=== PATIENT | female | born 1950 | race Caucasian/White ===

== ENCOUNTER 2016-09-20 05:53 | Day surgery (SDC) | payer MEDICARE, OTHER ==
--- NOTE | 2016-09-18 16:00 | PCM.ANEPRE ---
Anesthesia Pre-Op Review Reason for Review: systolic murmur heard at preop- EKG done, no prior cardiac hx, sx Anesthesia Recommendations: Proceed with Procedure Additional Comments This patient has an upcoming low risk surgical procedure and can present for surgery. Additionally, she meets the criteria of 4 METS without cardiac chest pain or symptoms. Therefore, she does not need further cardiac optimization prior to proceeding to the OR. If her symptoms in person are different than on paper, it is certainly reasonable for the plan for surgery to be re-evaluated. However, at this time, I do not see any further need for ongoing workup or optimization of a heart murmur. Shay Hernandez MD Sep 18, 2016 16:00
[~2016-09-20] VITALS: Ht 155.6 cm; Wt 79.8 kg
[~2016-09-20 05:53] MED LIST: ADV250INH IH; ALBU8.5H2 INHALATION; BUPR200T34 PO; CALC-696 PO; CHOL100043 PO; CINN500C14 PO; DULO60CA61 PO; FLAX100038 PO; LISI1TAB9 PO; METH750T3 PO; RES15 PO; RIZA10TA23 PO; vitamin b12
[2016-09-20] MEDS ORDERED: fentaNYL-PF 50 mCg/mL 2 mL Inj ONE (05:54)
[2016-09-20] MEDS ORDERED: Propofol 10,000 mCg/mL 20 mL Inj ONE (05:54)
[2016-09-20 06:27] VITALS: BP 134/83; PULSE 88; RESP 14; O2SAT 97
[2016-09-20] MEDS: Lactated Ringer's 1,000 ML IV SCH ×2 (06:44→07:24)
[2016-09-20] MEDS ORDERED: Lactated Ringer's 1,000 ML IV SCH (07:32)
[2016-09-20] MEDS ORDERED: Lactated Ringer's 500 ML IV PRN (07:32)
[2016-09-20] MEDS ORDERED: Ondansetron 2 mg/mL 2 mL Inj IVPUSH PRN (07:35)
[2016-09-20] MEDS ORDERED: fentaNYL-PF 50 mCg/mL 2 mL Inj IVPUSH PRN (07:35)
[2016-09-20] MEDS ORDERED: EPHEDrine Sulfate 50 mg/mL Inj IVPUSH PRN (07:35)
[2016-09-20] MEDS ORDERED: hydrALAZINE 20 mg/mL Inj IVPUSH PRN (07:35)
[2016-09-20] MEDS ORDERED: Atropine 0.4 mg/mL Inj IVPUSH PRN (07:35)
[2016-09-20] MEDS ORDERED: Phenylephrine 10,000 mCg/mL Inj IVPUSH PRN (07:35)
[2016-09-20] MEDS ORDERED: Lidocaine 1%-Epi 1:100,000 20 mL Inj INFILTRATE ONE (07:40)
[2016-09-20] MEDS ORDERED: HYDROcodone-APAP 5-325 mg Tablet PO PRN (07:50)
[2016-09-20 07:58] VITALS: BP 115/72; PULSE 87; RESP 16; O2SAT 95
[2016-09-20 08:38] VITALS: BP 122/78; PULSE 81; RESP 20; O2SAT 96
--- NOTE | 2016-09-20 13:05 | PCM.HPANE ---
Patient Data Surgeon Admitting Provider: Attending Provider:Miquel Morocho DO Primary Care Physician:Lexy Ortega Other Provider:Reji Caballero Anesthesia Reason for Visit Left Carpal Tunnel Syndrome Ht/WT & BMI Height (Feet): 5 Height (Inches): 1.25 Weight (Kilograms): 79.830 Body Mass Index 32.00 Allergies Coded Allergies: amoxicillin (Verified Allergy, Unknown, gi symptoms, 09/18/16) clavulanic acid (Verified Allergy, Unknown, gi symptoms, 09/18/16) nadolol (Verified Allergy, Unknown, exacerbated asthma, 09/18/16) naproxen (Verified Allergy, Unknown, rash, 09/18/16) Past Anesthesia History Anesthesia History: Denies:: Abnormal Airway, Anesthesia Reactions, Difficult Intubation, Fam Anesthesia Reaction, Fam Malignant Hypertherm, Malignant Hyperthermia Diabetes History Hx Diabetes?: No MRSA MRSA: No Medications Hypertension Medication: Yes Home Meds Incl Beta Liam: No Reported Medications Cholecalciferol (Vitamin D3) (Vitamin D)1,000 Unit Tablet2,000 Unit PO DAILY #1 BOTTLE Ref 0 09/18/16 [vitamin b12] No Conflict CheckUnknown Dose DAILY 09/18/16 Temazepam 15 Mg [id number] Mg PO HS PRN For Insomnia 30 Days Ref 0 09/18/16 Rizatriptan ODT (Maxalt MACARONI MAKER)10 Mg Nmwrmg27 Mg PO PRN migraines MR q2h/ NTE 30mg/24hr 09/18/16 Lisinopril / HCTZ 20-12.5 mg 1 Each Tablet2 Each PO DAILY Ref 0 09/18/16 Flaxseed Oil ([place]-3 Flaxseed Oil)1,000 Mg Capsule1,000 Mg PO DAILY 09/18/16 Duloxetine 60 Mg Capsule.dr60 Mg PO DAILY Ref 0 09/18/16 Cinnamon Bark (Cinnamon)500 Mg Capsule1,000 Mg PO 09/18/16 Calcium Citrate/Vitamin D2 (Emiliano-Citrate Plus Vitamin D Tab)1 Each Tablet1 Each PO DAILY 09/18/16 Bupropion HCl (Bupropion HCl ER)200 Mg Tablet.er200 Mg PO BID 09/18/16 Albuterol HFA (Proair HFA)8.5 Gm Hfa.aer.ad2 Puffs INHALATION Q4H PRN For Shortness of Breath #1 INHALER 09/18/16 Fluticasone/Salmeterol (Advair 250-50 Diskus)60 Puff/Inh Disk1 Puff IH BID #1 DISK Ref 0 09/18/16 Discontinued Reported Medications Methocarbamol 750 Mg [id number] Mg PO QID PRN For Spasm Ref 0 09/18/16 History HEENT History: Denies:: Abnormal Airway Cataracts Difficult Intubation Dysphagia Glaucoma Hearing Problem Sinus Problem TMJ Teeth Condition: Broken Teeth Other HEENT Pertinent History: broken tooth, part of a crown - not painful, upper left Hx of Heart Problems?: Yes Cardiovascular History: Positive for:: Heart Murmur (systolic murmur heard at pre-op) Hypertension Denies:: AICD Pacemaker Peripheral Vascular Rheumatic Fever Thrombophlebitis Valvular Heart Disease Hx of Respiratory Problem?: Yes Respiratory History: Positive for:: Asthma Pneumonia (remote hx of ) Use of Inhalers / NEBS Denies:: COPD Emphysema Oxygen Administration Pulmonary Embolism Tuberculosis Use of C-PAP Machine Hx Neurologic Problems?: No Neurological History: Positive for:: Headaches (a few times a year, ) Denies:: Alzheimer's Disease CVA Dementia Dizziness Multiple Sclerosis Parkinson's Disease Seizures TIA Hx of GI Problems?: No Gastrointestinal History: Denies:: Cirrhosis Diverticulitis Gall Bladder Disease Gastroesphageal Reflux (occasionally) Gastrointestinal Bleeding Heartburn Hepatitis Hiatal Hernia Liver Disease Rectal Bleeding Hx of Problems?: No Genitourinary History: Denies:: Kidney Stones Urinary Tract Infection Female Hx: Denies:: Currently (post menopausal ) Problems with Breasts? Skin History: Denies:: History Skin Disorders? Pressure Ulcers Hx Musculoskeletal Problems?: Yes Musculoskeletal History: Positive for:: Back Injury (hurts her to turn neck- thinks is pulled muscle) Musculoskeletal Trauma (left carpal tunnel current admission problem) Osteoarthritis Denies:: Degenerative Joint Fibromyalgia Joint Replacement Systemic Lupus Hx of Psycho/Social Problems?: Yes Psycho Social History: Positive for:: Anxiety Hx Depression Hx Surgeries?: No Hx Any Other Health Problems?: Yes Other History: Denies:: Cancer Hospitalization Thyroid Disease History Blood Transfusions: Positive for:: Accept Blood Products? Denies:: Blood Transfusions Hx Diabetes: No Hx Alcohol Use: YesAlcoholic Drinks Per Day: 2 drinks dailyHx Substance Use: NoHave You Smoked inLast 12 mo: No Stop/Bang S-Snoring: Do You Snore Loudly: Yes T-Tired: feel tired, fatigued: Yes O-Obsered: Observed not breath: No P-Blood Pressure: treated: Yes B- Body Mass Index > 35 kg/m2: No A- Age over 50: Yes N- Neck Large Circumference: No G- Gender Male: No LEATHA Total Score: 4 Risk Assessment Category Category 1A: Patient has history of documented sleep apnea, and HAS NOT received any narcotic, sedative or anesthesia administration during this stay. Category 1B: Patient has history of documented sleep apnea, and HAS received any narcotic , sedative or anesthesia administration during this stay Category 2: Patient has SUSPECTED Obstructive Sleep Apnea, and HAS received any narcotic , sedative or anesthesia administration during this stay. Category 3: Patient has SUSPECTED Obstructive Sleep Apnea and HAS NOT received narcotic, sedative or anesthesia administration during this stay. Category 4: Outpatient in Procedural Areas with known sleep apnea or who screen positive for High Risk via the STOP/BANG questionnaire. Exam Exam Vital Signs Vital Signs Date Time Temp Pulse Resp B/P Pulse Ox O2 Delivery O2 Flow Rate FiO2 09/20/16 06:27 88 14 134/83 97 Room Air General Appearance: Alert, Oriented X3, Cooperative, No Acute Distress HEENT/AIRWAY: MP 2, Neck Movement (FROM), Mouth Opening (3 FBMO) Lungs: Normal Air Movement Heart: Regular Rate/Rhythm Meds/Labs/Diagnostics Admission Meds Current Medications Lactated Ringer's (Lr) 1,000 ml @ 120 mls/hr Q8H20M IV Last administered on t 06:44; Start 09/20/16 at 05:00; Stop 09/20/16 at 13:19 Plan Impression Patient chart reviewed, patient interviewed and anesthestic plan with risks, benefits, and alternatives discussed, and informed consent obtained. NPO Status: [id number] WATER WITH MEDS ASA Physical Status: ASA2 Mod Systemic Disease Anesthetic Plan: MAC Bene/Risks/Altern/Consents: Yes HP Complete Prior to Induction: Yes Morris Yan MD Sep 20, 2016 07:00
--- NOTE | 2016-09-20 13:06 | PCM.ANEP2 ---
Post Anesthesia Evaluation ASA/CMS Post Anesthesia VS in Patient's Normal Range?: Yes Resp Stable; Airway Patent?: Yes CV Function & Hydration Stable: Yes Mental Status Recovered?: Yes Pain control Satisfactory?: Yes N/V Control Satisfactory?: Yes Morris Yan MD Sep 20, 2016 13:06
--- NOTE | 2016-09-20 13:06 | PCM.ANEP1 ---
Post Anesthesia Phase 1 PACU Phase 1 Assessment Vital Signs Vital Signs Date Time Temp Pulse Resp B/P Pulse Ox O2 Delivery O2 Flow Rate FiO2 09/20/16 08:38 81 20 122/78 96 Room Air 09/20/16 07:58 36.2 87 16 115/72 95 Room Air 09/20/16 06:27 88 14 134/83 97 Room Air Anesthetic Administered: MAC Level of Alertness: Awake, talking SHAHID's with Equal Strength: Yes Pain: No Nausea or Vomiting: No Oxygen Delivery: Room Air Lungs: Normal Air Movement Dermatome Level: Full Sensation Morris Yan MD Sep 20, 2016 13:06
--- NOTE | 2016-09-20 20:48 | OP ---
[address] [address] OPERATIVE REPORT PATIENT: TAYLER GILL : 1950 MR#: [id number] ADMIT: 09/20/2016 JOB ID: [id number] DATE OF SURGERY: 09/20/2016 PREOPERATIVE DIAGNOSIS(ES): Left carpal tunnel syndrome. POSTOPERATIVE DIAGNOSIS(ES): Left carpal tunnel syndrome. PROCEDURE: Left open carpal tunnel release. SURGEON: Miquel Morocho D.O. ANESTHESIA: Monitored anesthesia care and local. BRIEF HISTORY: The patient is a 66-year-old female with longstanding history of left hand pain and paresthesias. She failed conservative treatment with nighttime bracing and demonstrated electrodiagnostic findings for carpal tunnel syndrome. With the failure of conservative treatment, I discussed with the patient the risks, benefits, alternatives, indications to proceed with a left open carpal tunnel release. She understood the risks include, but are not limited to, neurovascular injury, tendon injury, infection, failure to resolve the patient's preoperative symptoms, stiffness, persistent pain all which may require further intervention. Patient had all questions answered, consent was signed and placed in the chart. PROCEDURE IN DETAIL: The patient was brought to the operative suite and placed supine on the operating table. Surgical time-out performed and everyone in the room was in agreement. After appropriate anesthesia was obtained, a left upper arm tourniquet was applied and the left upper extremity was prepped and draped in sterile fashion. A 2 cm longitudinal incision was made in line with the radial aspect of the ring finger and the ulnar aspect of the palmaris longus. The incision was kept distal to the wrist crease and proximal to Abernathy's cardinal line. Subcutaneous tissues were dissected with bipolar electrocautery utilized to maintain hemostasis throughout the procedure. The palmar fascia was first identified and incised longitudinally in line with the skin incision followed by exposure of the underlying transcarpal ligament. The transcarpal ligament was then released in its entirety to include the distal extent of the antebrachial fascia. Copious irrigation was performed followed by closure of the skin with 5-0 nylon in a simple interrupted fashion. The patient was then placed in a bulky soft dressing. ESTIMATED BLOOD LOSS: 1 cc. COMPLICATIONS: None. DISPOSITION: The patient tolerated the procedure well. Anesthesia was reversed. The patient was transferred back to recovery. POSTOPERATIVE PLAN: The patient will follow up in the office in two weeks. I will remove the patient's sutures at that time and have her start working on range of motion and scar mobilization.
== END 2016-09-20 23:59 | disposition home or self-care (01) ==
LOC: SAS 05:53
PROVIDERS: ATTEND Orthopaedic Surgery
DX: G56.02 Carpal tunnel syndrome, left upper limb (principal); I10 Essential (primary) hypertension; J45.909 Unspecified asthma, uncomplicated
CPT/HCPCS: 64721; J7120